=== PATIENT | male | born 1965 | race Caucasian/White ===

== ENCOUNTER → 2018-01-20 | Outpatient (REF) | payer OTHER, MEDICAID ==
[2018-01-20 13:35] LABS: TOTAL 25(OH) VITAMIN D 29.1 NG/ML (30.0-100.0)
[2018-01-20 13:39] LABS: ALBUMIN 3.3 GM/DL (3.2-5.2); ALKALINE PHOSPHATASE 150 U/L (45-117); ALT/SGPT 48 U/L (12-78); ANION GAP 8 MEQ/L (8-16); AST/SGOT 24 U/L (7-37); BILIRUBIN,TOTAL 0.4 MG/DL (0.2-1.0); BLOOD UREA NITROGEN 12 MG/DL (7-18); CALCIUM LEVEL 8.5 MG/DL (8.5-10.1); CARBON DIOXIDE LEVEL 25 MEQ/L (21-32); CHLORIDE LEVEL 107 MEQ/L (98-107); CHOLESTEROL LEVEL 128 MG/DL (<200); GLOMERULAR FILTRATION RATE > 60.0 (>56); GLUCOSE, FASTING 97 MG/DL (70-100); HDL CHOLESTEROL 40 MG/DL (>40); NON-HDL-C 88 MG/DL; PROSTATIC SPECIFIC AG MONITOR 0.29 NG/ML (< 4.0); SODIUM LEVEL 140 MEQ/L (136-145); TOTAL PROTEIN 7.4 GM/DL (6.4-8.2); TRIGLYCERIDES LEVEL 80 MG/DL (<150)
[2018-01-20 14:34] LABS: ESTIMATED AVERAGE GLUCOSE 123 MG/DL (60-110); HEMOGLOBIN A1c 5.9 %
[2018-01-22 00:08] LABS: TESTOSTERONE FREE (DIRECT) 6.4 pg/mL (7.2-24.0)
== END ==
LOC: M LAB REF 12:15
DX: R06.83 Snoring (principal); Z13.9 Encounter for screening, unspecified; N52.9 Male erectile dysfunction, unspecified

== ENCOUNTER → 2018-02-25 | Outpatient (CLI) | payer OTHER, MEDICAID | LOC: M SLEEP HO 15:02 | DX: G47.30 Sleep apnea, unspecified (principal) | CPT/HCPCS: G0399 ==

== ENCOUNTER → 2018-03-09 | Outpatient (CLI) | payer OTHER ==
[2018-03-09 14:05] LABS: HEMOGLOBIN 16.7 g/dl (13.5-17.5); MEAN CORPUSCULAR HEMOGLOBIN 31.8 pg (27.0-33.0); MEAN CORPUSCULAR HGB CONC 34.8 g/dl (32.0-36.5); MEAN CORPUSCULAR VOLUME 91.4 fl (80.0-96.0); PLATELET COUNT, AUTOMATED 229 10^3/uL (150-450); RED BLOOD COUNT 5.25 10^6/uL (4.30-6.10); RED CELL DISTRIBUTION WIDTH 12.3 % (11.5-14.5); WHITE BLOOD COUNT 8.1 10^3/uL (4.0-10.0)
[2018-03-09 14:23] LABS: ESTRADIOL 25.1 PG/ML (<39.8); LUTEINIZING HORMONE 5.2 mIU/mL (1.5-9.3); PROLACTIN 8.1 NG/ML (2.1-17.7)
[2018-03-09 14:24] LABS: FOLLICLE STIMULATING HORMONE 4.2 mIU/mL (1.4-18.1)
[2018-03-09 14:29] LABS: ALBUMIN 3.5 GM/DL (3.2-5.2); ALKALINE PHOSPHATASE 163 U/L (45-117); ALT/SGPT 54 U/L (12-78); ANION GAP 7 MEQ/L (8-16); AST/SGOT 28 U/L (7-37); BILIRUBIN,TOTAL 0.4 MG/DL (0.2-1.0); BLOOD UREA NITROGEN 11 MG/DL (7-18); CALCIUM LEVEL 8.9 MG/DL (8.5-10.1); CARBON DIOXIDE LEVEL 27 MEQ/L (21-32); CHLORIDE LEVEL 107 MEQ/L (98-107); CREATININE FOR GFR 0.99 MG/DL (0.70-1.30); GLOMERULAR FILTRATION RATE > 60.0 (>56); GLUCOSE, FASTING 117 MG/DL (70-100); POTASSIUM SERUM 4.3 MEQ/L (3.5-5.1); PSA SCREENING 0.24 NG/ML (< 4.0); SODIUM LEVEL 141 MEQ/L (136-145); TOTAL PROTEIN 7.4 GM/DL (6.4-8.2)
[2018-03-11 00:10] LABS: SEX HORMONE BINDING GLOBULIN 28.1 nmol/L (19.3-76.4); TESTOSTERONE FREE (DIRECT) 5.1 pg/mL (7.2-24.0)
== END ==
LOC: M SMT 08:37
DX: E34.9 Endocrine disorder, unspecified (principal); Z12.5 Encounter for screening for malignant neoplasm of prostate
CPT/HCPCS: 83001

== ENCOUNTER → 2018-06-09 | Outpatient (CLI) | payer OTHER | LOC: M SLEEP 19:50 | DX: G47.33 Obstructive sleep apnea (adult) (pediatric) (principal) | CPT/HCPCS: 95811 ==

== ENCOUNTER → 2018-06-11 | Outpatient (CLI) | payer OTHER ==
[2018-06-11 14:53] LABS: HEMATOCRIT 54.6 % (42.0-52.0); HEMOGLOBIN 18.9 g/dl (13.5-17.5); MEAN CORPUSCULAR HEMOGLOBIN 32.4 pg (27.0-33.0); MEAN CORPUSCULAR HGB CONC 34.6 g/dl (32.0-36.5); MEAN CORPUSCULAR VOLUME 93.7 fl (80.0-96.0); PLATELET COUNT, AUTOMATED 213 10^3/uL (150-450); RED BLOOD COUNT 5.83 10^6/uL (4.30-6.10); RED CELL DISTRIBUTION WIDTH 12.9 % (11.5-14.5); WHITE BLOOD COUNT 10.5 10^3/uL (4.0-10.0)
[2018-06-15 00:12] LABS: TESTOSTERONE FREE (DIRECT) 25.1 pg/mL (7.2-24.0)
== END ==
LOC: M LAB 14:23
DX: E34.9 Endocrine disorder, unspecified (principal)
CPT/HCPCS: 84403

== ENCOUNTER 2018-07-02 10:13 | Emergency (ER) | payer OTHER ==
[2018-07-02 12:25] LABS: HEMATOCRIT 57.4 % (42.0-52.0); HEMOGLOBIN 19.7 g/dl (13.5-17.5); MEAN CORPUSCULAR HEMOGLOBIN 31.9 pg (27.0-33.0); MEAN CORPUSCULAR HGB CONC 34.3 g/dl (32.0-36.5); PLATELET COUNT, AUTOMATED 190 10^3/uL (150-450); RED BLOOD COUNT 6.17 10^6/uL (4.30-6.10); RED CELL DISTRIBUTION WIDTH 12.6 % (11.5-14.5); WHITE BLOOD COUNT 8.7 10^3/uL (4.0-10.0)
[2018-07-02] MEDS ORDERED: ISOVUE-370 76% 100ML VIAL (Q9967) As Ordered (12:37)
[2018-07-02 12:50] LABS: ERYTHROCYTE SEDIMENTATION RATE 1 mm/hr (0-20)
[2018-07-02 12:54] LABS: C REACTIVE PROTEIN QUANTITATIV 1.03 MG/DL (0.00-0.30)
[2018-07-02 12:58] LABS: LACTIC ACID SEPSIS PROTOCOL 1.8 MMOL/L (0.4-2.0)
== END 2018-07-02 14:10 | disposition home or self-care (01) ==
LOC: M ED 10:13
DX: K11.20 Sialoadenitis, unspecified (principal); K21.9 Gastro-esophageal reflux disease without esophagitis; G56.00 Carpal tunnel syndrome, unspecified upper limb; Z87.442 Personal history of urinary calculi; Z86.69 Personal history of other diseases of the nervous system and sense organs; Z88.1 Allergy status to other antibiotic agents; Z88.2 Allergy status to sulfonamides; Z87.891 Personal history of nicotine dependence
CPT/HCPCS: Q9967

== ENCOUNTER → 2018-07-23 | Outpatient (CLI) | payer OTHER ==
[2018-07-23 12:08] LABS: ESTIMATED AVERAGE GLUCOSE 120 MG/DL (60-110); HEMOGLOBIN A1c 5.8 %
[2018-07-23 12:16] LABS: ALBUMIN 3.2 GM/DL (3.2-5.2); ALBUMIN/GLOBULIN RATIO 0.82 (1.00-1.93); ALKALINE PHOSPHATASE 111 U/L (45-117); ALT/SGPT 46 U/L (12-78); ANION GAP 7 MEQ/L (8-16); AST/SGOT 27 U/L (7-37); BILIRUBIN,TOTAL 0.5 MG/DL (0.2-1.0); BLOOD UREA NITROGEN 9 MG/DL (7-18); CALCIUM LEVEL 8.5 MG/DL (8.5-10.1); CARBON DIOXIDE LEVEL 29 MEQ/L (21-32); CHLORIDE LEVEL 104 MEQ/L (98-107); CHOLESTEROL LEVEL 111 MG/DL (<200); CHOLESTEROL RISK RATIO 2.707 (<5); CREATININE FOR GFR 1.04 MG/DL (0.70-1.30); GLOMERULAR FILTRATION RATE > 60.0 (>56); GLUCOSE, FASTING 84 MG/DL (70-100); HDL CHOLESTEROL 41 MG/DL (>40); LDL CHOLESTEROL 58 MG/DL (<100); NON-HDL-C 70 MG/DL; POTASSIUM SERUM 4.3 MEQ/L (3.5-5.1); SODIUM LEVEL 140 MEQ/L (136-145); TOTAL PROTEIN 7.1 GM/DL (6.4-8.2); TRIGLYCERIDES LEVEL 62 MG/DL (<150)
== END ==
LOC: M LAB 11:30
DX: R74.8 Abnormal levels of other serum enzymes (principal); E78.70 Disorder of bile acid and cholesterol metabolism, unspecified; R73.03 Prediabetes
CPT/HCPCS: 80053

== ENCOUNTER → 2018-08-12 | Outpatient (REF) | payer OTHER ==
[2018-08-12 17:37] LABS: BF MONONUCLEAR CELL % 83.7 % (0-0); BF POLYMORPHONUCLEAR CELL % 16.3 % (0-0); RBC BODY FLUID 134 10^3/uL (<2); WBC BODY FLUID 1006 /uL (0-10)
[2018-08-12 17:45] LABS: SOURCE, BODY FLUID RT KNEE; SYNOVIAL FLUID COLOR RED (YELLOW)
[2018-08-12 17:46] LABS: APPEARANCE, BODY FLUID TURBID (CLEAR); BF DIFF IF INDICATED? YES (NO)
== END ==
LOC: M LAB REF 16:44
DX: M25.461 Effusion, right knee (principal)
CPT/HCPCS: 89051

== ENCOUNTER → 2018-09-12 | Outpatient (CLI) | payer OTHER ==
[2018-09-12 08:23] LABS: HEMATOCRIT 53.6 % (42.0-52.0); HEMOGLOBIN 18.4 g/dl (13.5-17.5); MEAN CORPUSCULAR HGB CONC 34.3 g/dl (32.0-36.5); MEAN CORPUSCULAR VOLUME 93.2 fl (80.0-96.0); PLATELET COUNT, AUTOMATED 206 10^3/uL (150-450); RED BLOOD COUNT 5.75 10^6/uL (4.30-6.10); RED CELL DISTRIBUTION WIDTH 13.3 % (11.5-14.5); WHITE BLOOD COUNT 11.6 10^3/uL (4.0-10.0)
[2018-09-13 14:12] LABS: TESTOSTERONE FREE (DIRECT) 26.7 pg/mL (7.2-24.0)
== END ==
LOC: M LAB 07:55
DX: E34.9 Endocrine disorder, unspecified (principal)
CPT/HCPCS: 84403

== ENCOUNTER 2018-10-05 07:48 | Day surgery (SDC) | payer OTHER ==
[~2018-10-05] VITALS: Ht 182.9 cm; Wt 118.8 kg
[~2018-10-05 07:48] MED LIST: /AUGM875TA PO; /CELE20CA PO; /ONDA4TA PO; ACET65TA PO; ASPI1TAB PO; ATOR40TA75 PO; AUGM875T28 PO; CIPR500T4 PO; DOXY100C37 PO; FLAG500T PO; KETO2SH; PERC5TAB8 OR; PERC5TAB8 PO; TEST200I14 IM; VICO5TAB PO
[2018-10-05] MEDS ORDERED: PROPOFOL 200 MG/20 ML VIAL As Ordered ONE ×2 (07:53→08:47)
[2018-10-05] MEDS ORDERED: LIDOCAINE 2% INJ 100 MG/5 ML SDV (FOR ANES.) As Ordered ONE (07:53)
[2018-10-05] MEDS ORDERED: NS 1,000 ML IV ONE (08:15)
--- NOTE | 2018-10-05 09:02 | ROOR ---
Patient Name: Landon Moya Procedure Date: 10/05/2018 8:38 AM Date of : 1965 Age: 53 Room: [facility] Gender: Male Note Status: Finalized Procedure: Total Colonoscopy to Cecum + Cold Snare Polypectomy + Hemoclips Indications: Screening for colorectal malignant neoplasm Providers: Kendrick Ayoub MD Referring MD: Suzette COBOS NP Requesting Provider: Medicines: Monitored Anesthesia Care Complications: No immediate complications. Procedure: Pre-Anesthesia Assessment: - The heart rate, respiratory rate, oxygen saturations, blood pressure, adequacy of pulmonary ventilation, and response to care were monitored throughout the procedure. The Colonoscope was introduced through the anus and advanced to the cecum, identified by appendiceal orifice and ileocecal valve. The colonoscopy was performed without difficulty. The patient tolerated the procedure well. The quality of the bowel preparation was excellent. Findings: The perianal and digital rectal examinations were normal. Non-bleeding internal hemorrhoids were found during retroflexion. The hemorrhoids were small and Grade I (internal hemorrhoids that do not prolapse). Multiple small and large-mouthed diverticula were found in the recto-sigmoid colon, sigmoid colon and descending colon. A medium polyp was found at 20 cm proximal to the anus. The polyp was sessile. The polyp was removed with a cold snare. Resection and retrieval were complete. To prevent bleeding after the polypectomy, two hemostatic clips were successfully placed (MR conditional). There was no bleeding at the end of the procedure. The exam was otherwise without abnormality on direct and retroflexion views. Impression: - Non-bleeding internal hemorrhoids. - Diverticulosis in the recto-sigmoid colon, in the sigmoid colon and in the descending colon. - One medium polyp at 20 cm proximal to the anus, removed with a cold snare. Resected and retrieved. Clips (MR conditional) were placed. - The examination was otherwise normal on direct and retroflexion views. - The exam was otherwise normal to the cecum. Recommendation: - Patient has a contact number available for emergencies. The signs and symptoms of potential delayed complications were discussed with the patient. Return to normal activities tomorrow. Written discharge instructions were provided to the patient. - High fiber diet. - Discharge patient to home. - Continue present medications. - Await pathology results. - Telephone GI clinic for pathology results in 1 week. - Return to referring physician. - Repeat colonoscopy in 10 years for surveillance based on pathology results. - Return to referring physician. - The findings and recommendations were discussed with the patient's family. Kendrick Ayoub MD Kendrick Ayoub MD 10/05/2018 9:02:07 AM This report has been signed electronically. Number of Addenda: 0 Note Initiated On: 10/05/2018 8:38 AM Estimated Blood Loss: Estimated blood loss: none.
[2018-10-05 09:35] VITALS: BP 152/76
== END 2018-10-05 09:45 | disposition home or self-care (01) ==
LOC: M OPP 07:48
PROVIDERS: ATTEND Internal Medicine Gastroenterology
DX: D12.6 Benign neoplasm of colon, unspecified (principal); K57.30 Diverticulosis of large intestine without perforation or abscess without bleeding; K64.0 First degree hemorrhoids; Z12.11 Encounter for screening for malignant neoplasm of colon

== ENCOUNTER → 2018-10-28 | Outpatient (CLI) | payer OTHER ==
--- NOTE | 2018-10-29 06:45 | REP ---
MRI right knee without contrast: History: Pain in the right knee. Technique: Axial, coronal and sagittal imaging planes are utilized. T1 and T2-weighted scans are included with and without fat saturation. MRI findings: There is a large joint effusion. There is no observable Rosales's cyst. There is some extra-articular subcutaneous edema diffusely anteriorly and anterolaterally about the knee. Cortical and medullary bone signal intensity are normal. There is an area of subtle marrow edema in the upper central patella. There is three compartment osteoarthritic spurring most pronounced in the patellofemoral and lateral compartments. There is advanced chondromalacia in all three compartments. No medial or lateral meniscal tear is appreciated. There is no evidence of medial or lateral collateral ligament disruption. The anterior and the posterior cruciate ligaments have an intact appearance. Patellar and quadriceps tendons are unremarkable. There is nonarticular spurring at the superior pole of the patella in addition to osteoarthritic articular spurring. A small medial suprapatellar plica is noted. There is a wafer shaped osteocartilaginous loose body suspected in the posterolateral joint fluid. This measures 8 mm by 9 mm by 2 mm. No other loose body is appreciated. Impression: Three compartment osteoarthritis. Fairly large joint effusion. Osteocartilaginous loose body posterolaterally. Suprapatellar plica. Extra-articular edema. Advanced three compartment chondromalacia. Electronically Signed by Sameer Herrera MD 10/29/2018 08:26 A
== END ==
LOC: M RAD 16:19
PROVIDERS: ATTEND Orthopaedic Surgery Sports Medicine
DX: M25.561 Pain in right knee (principal)

== ENCOUNTER → 2018-10-31 | Outpatient (CLI) | payer OTHER ==
[2018-11-02 00:10] LABS: Lyme Disease IgG/IgM Antibodie <0.91 ISR (0.00-0.90); Lyme Disease IgM Ab Quantitati <0.80 index (0.00-0.79)
== END ==
LOC: M LAB 08:51
PROVIDERS: ATTEND Orthopaedic Surgery Sports Medicine
DX: M25.561 Pain in right knee (principal)

== ENCOUNTER → 2018-10-31 | Outpatient (CLI) | payer OTHER ==
[2018-10-31 09:25] LABS: HEMATOCRIT 48.9 % (42.0-52.0); HEMOGLOBIN 17.3 g/dl (13.5-17.5); MEAN CORPUSCULAR HEMOGLOBIN 32.5 pg (27.0-33.0); MEAN CORPUSCULAR HGB CONC 35.4 g/dl (32.0-36.5); MEAN CORPUSCULAR VOLUME 91.7 fl (80.0-96.0); PLATELET COUNT, AUTOMATED 198 10^3/uL (150-450); RED BLOOD COUNT 5.33 10^6/uL (4.30-6.10)
[2018-11-01 10:14] LABS: TESTOSTERONE FREE (DIRECT) 18.2 pg/mL (7.2-24.0)
== END ==
LOC: M LAB 08:47
PROVIDERS: ATTEND Nurse Practitioner Women's Health
DX: E34.9 Endocrine disorder, unspecified (principal)

== ENCOUNTER → 2019-03-10 | Outpatient (CLI) | payer OTHER ==
[~2019-03-10] MED LIST changes: -/CELE20CA PO; -/ONDA4TA PO; -ASPI1TAB PO; +ASPI81TA26 PO; +CELE1CAP4 PO; -KETO2SH; +KETO2SHA9; +ONDA-1 PO
[2019-03-10 10:32] LABS: BASO # 0.1 10^3/uL (0.0-0.2); BASO % 0.6 % (0.0-1.0); EOS # 0.3 10^3/uL (0.0-0.50); EOS % 3.5 % (0.0-3.0); HEMATOCRIT 51.5 % (42.0-52.0); HEMOGLOBIN 18.2 g/dl (13.5-17.5); LYMPH # 3.3 10^3/uL (1.5-4.5); LYMPH % 37.3 % (24.0-44.0); MEAN CORPUSCULAR HEMOGLOBIN 33.7 pg (27.0-33.0); MEAN CORPUSCULAR HGB CONC 35.3 g/dl (32.0-36.5); MEAN CORPUSCULAR VOLUME 95.4 fl (80.0-96.0); MONO # 0.6 10^3/uL (0.0-0.8); MONO % 6.6 % (0.0-5.0); NEUTROPHILS # 4.6 10^3/uL (1.8-7.7); NEUTROPHILS % 51.3 % (36.0-66.0); PLATELET COUNT, AUTOMATED 213 10^3/uL (150-450); WHITE BLOOD COUNT 8.9 10^3/uL (4.0-10.0)
[2019-03-10 11:13] LABS: ALBUMIN 3.3 GM/DL (3.2-5.2); ALT/SGPT 57 U/L (12-78); BILIRUBIN,TOTAL 0.5 MG/DL (0.2-1.0); BLOOD UREA NITROGEN 13 MG/DL (7-18); CALCIUM LEVEL 8.6 MG/DL (8.5-10.1); CARBON DIOXIDE LEVEL 28 MEQ/L (21-32); CHLORIDE LEVEL 105 MEQ/L (98-107); CHOLESTEROL LEVEL 135 MG/DL (<200); CHOLESTEROL RISK RATIO 3.139 (<5); CREATININE FOR GFR 0.89 MG/DL (0.70-1.30); FREE T4 0.77 NG/DL (0.76-1.46); GLOMERULAR FILTRATION RATE > 60.0 (>56); GLUCOSE, FASTING 102 MG/DL (70-100); HDL CHOLESTEROL 43 MG/DL (>40); LDL CHOLESTEROL 75 MG/DL (<100); NON-HDL-C 92 MG/DL; POTASSIUM SERUM 3.9 MEQ/L (3.5-5.1); SODIUM LEVEL 140 MEQ/L (136-145); TOTAL 25(OH) VITAMIN D 27.1 NG/ML (30.0-100.0); TOTAL PROTEIN 7.5 GM/DL (6.4-8.2); TRIGLYCERIDES LEVEL 87 MG/DL (<150)
[2019-03-10 11:17] LABS: HEMOGLOBIN A1c 5.5 %
== END ==
LOC: M LAB 09:31
PROVIDERS: ATTEND Physician Assistant
DX: J30.9 Allergic rhinitis, unspecified (principal); E78.2 Mixed hyperlipidemia; E55.9 Vitamin D deficiency, unspecified; Z68.35 Body mass index [BMI] 35.0-35.9, adult; Z87.898 Personal history of other specified conditions

== ENCOUNTER → 2019-03-14 | Outpatient (CLI) | payer OTHER ==
[2019-03-14 18:23] LABS: ALBUMIN 3.5 GM/DL (3.2-5.2); ALT/SGPT 51 U/L (12-78); BILIRUBIN,TOTAL 0.4 MG/DL (0.2-1.0); BLOOD UREA NITROGEN 12 MG/DL (7-18); CALCIUM LEVEL 9.1 MG/DL (8.5-10.1); CARBON DIOXIDE LEVEL 27 MEQ/L (21-32); CHLORIDE LEVEL 104 MEQ/L (98-107); CREATININE FOR GFR 0.91 MG/DL (0.70-1.30); GLOMERULAR FILTRATION RATE > 60.0 (>56); GLUCOSE, FASTING 96 MG/DL (70-100); POTASSIUM SERUM 3.7 MEQ/L (3.5-5.1); SODIUM LEVEL 140 MEQ/L (136-145); TOTAL PROTEIN 7.1 GM/DL (6.4-8.2)
[2019-03-17 00:07] LABS: TESTOSTERONE FREE (DIRECT) 13.5 pg/mL (7.2-24.0)
== END ==
LOC: M LAB 16:23
PROVIDERS: ATTEND Nurse Practitioner Women's Health
DX: Z12.5 Encounter for screening for malignant neoplasm of prostate (principal); E34.9 Endocrine disorder, unspecified

== ENCOUNTER → 2019-07-19 | Outpatient (CLI) | payer OTHER ==
[2019-07-19 10:25] LABS: HEMATOCRIT 49.6 % (42.0-52.0); HEMOGLOBIN 17.4 g/dl (13.5-17.5); MEAN CORPUSCULAR HEMOGLOBIN 32.8 pg (27.0-33.0); MEAN CORPUSCULAR HGB CONC 35.1 g/dl (32.0-36.5); MEAN CORPUSCULAR VOLUME 93.4 fl (80.0-96.0); RED BLOOD COUNT 5.31 10^6/uL (4.30-6.10); WHITE BLOOD COUNT 8.6 10^3/uL (4.0-10.0)
[2019-07-21 00:07] LABS: TESTOSTERONE FREE (DIRECT) 11.1 pg/mL (7.2-24.0)
== END ==
LOC: M LAB 09:08
PROVIDERS: ATTEND Nurse Practitioner Women's Health
DX: E34.9 Endocrine disorder, unspecified (principal)

== ENCOUNTER → 2019-09-26 | Outpatient (CLI) | payer OTHER ==
--- NOTE | 2019-09-26 08:40 | REP ---
CT paranasal sinuses: 09/26/2019. Indication: Sinusitis. Comparison: 07/02/2018. Technique: Unenhanced axial CT images of the paranasal sinuses were performed with coronal reconstructions provided. Findings: There are no air-fluid levels or frothy secretions within the paranasal sinuses. Minimal periosteal mucosal thickening is noted within the ethmoid sinuses bilaterally. The sinonasal passageways are patent. Left-sided mastoid effusion is present without coalescence or cortical breakthrough intracranially. There is abnormal soft tissue within the left middle ear cavity without ossicular/osseous erosion. The right mastoid air cells are clear. There is leftward deviation of the nasal septum. Impression: Minimal chronic-appearing ethmoid sinus disease. Left mastoid effusion which is likely inflammatory/infectious. Please correlate with direct inspection. Electronically Signed by Luis Miguel Cardona DO 09/26/2019 08:32 A
== END ==
LOC: M RAD 07:19
PROVIDERS: ATTEND Specialist
DX: J32.4 Chronic pansinusitis (principal); J33.8 Other polyp of sinus

== ENCOUNTER → 2019-11-16 | Outpatient (CLI) | payer OTHER ==
[~2019-11-16] MED LIST changes: +CETI-36 PO; +OMEP40CA97 PO; +VITA100054 PO
--- NOTE | 2019-11-17 00:59 | ECGEPIP ---
[facility] Test Date: 2019-11-16 Pat Name: MICHELLE ENGLISH Department: Room: - Gender: Male [employer]it [employer]erks Supervisor: MAGDALENA : 1965 Requested By: ELENA Broussard Order Number: [id number] Reading MD: Rogelio Hernandes Measurements Intervals [place] Rate: 64 P: 15 SD: 169 QRS: 18 QRSD: 93 T: 32 QT: 401 QTc: 414 Interpretive Statements SINUS RHYTHM MILD IVCD NO PRIOR TRACING IN THE SYSTEM Electronically Signed on 11-17-2019 0:59:08 EST by Rogelio Hernandes
== END ==
LOC: M EKG 16:46
PROVIDERS: ATTEND Anesthesiology
DX: Z01.810 Encounter for preprocedural cardiovascular examination (principal)

== ENCOUNTER 2019-11-20 08:59 | Day surgery (SDC) | payer OTHER ==
[~2019-11-20] VITALS: Ht 185.4 cm; Wt 127.9 kg
[~2019-11-20 08:59] MED LIST changes: +EPINEPHrine 1MG/ML INJ 30ML MD-VIAL As Ordered ONE; +LIDOCAINE 1% MDV 20ML VIAL SQ PRN; +LIDOCAINE W/EPINEPHRINE 1% 20ML VIAL As Ordered ONE; +LR 1,000 ML IV ONE; +METHYLENE BLUE 0.5% (5MG/ML) 10 ML AMP (PROVAYBLUE)(Q9968 PER 1MG) As Ordered ONE; +OXYMETAZOLINE NASAL SPRAY (AFRIN) As Ordered ONE
[2019-11-20] MEDS ORDERED: CIPRODEX OTIC SUSP 7.5ML As Ordered ONE (10:59)
[2019-11-20] MEDS ORDERED: LIDOCAINE 2% INJ 100 MG/5 ML SDV (FOR ANES.) As Ordered ONE ×2 (11:12→12:12)
[2019-11-20] MEDS ORDERED: fentaNYL 100 MCG/2 ML INJECTION (J3010) As Ordered ONE ×2 (11:12→11:13)
[2019-11-20] MEDS ORDERED: MIDAZOLAM INJ 2 MG/2 ML VIAL (J2250) As Ordered ONE (11:12)
[2019-11-20] MEDS ORDERED: propofoL 200 MG/20 ML VIAL As Ordered ONE (11:12)
[2019-11-20] MEDS ORDERED: ROCURONIUM BROMIDE 50 MG/5 ML VIAL As Ordered ONE (11:12)
[2019-11-20] MEDS ORDERED: dexameTHASONE 4 MG/ML 1ML VIAL (J1100) As Ordered ONE (11:12)
[2019-11-20] MEDS ORDERED: SUGAMMADEX SODIUM 500 MG/5 ML VIAL (BRIDION) As Ordered ONE (11:12)
[2019-11-20] MEDS ORDERED: ONDANSETRON 4MG/2ML VIAL (J2405) As Ordered ONE (11:12)
[2019-11-20] MEDS ORDERED: METOCLOPRAMIDE INJ 10MG/2ML VIAL (J2765) As Ordered ONE (11:12)
[2019-11-20] MEDS ORDERED: PHENYLephrine HCL 500 MCG/5 ML (100MCG/ML) SYRINGE (J2370) As Ordered ONE (11:33)
[2019-11-20] MEDS ORDERED: ACETAMINOPHEN 1000MG 100ML IV BTL (OFIRMEV) (J0131 PER 10MG) As Ordered ONE (11:34)
[2019-11-20] MEDS ORDERED: PERCOCET 5MG/325MG TAB As Ordered ONE (12:59)
[2019-11-20] MEDS: PERCOCET 5MG/325MG TAB PO PRN ×2 (13:00→14:14)
[2019-11-20] MEDS ORDERED: IBUPROFEN 800 MG TAB PO PRN (13:15)
[2019-11-20] MEDS ORDERED: fentaNYL 100 MCG/2 ML INJECTION (J3010) IV PRN (13:15)
[2019-11-20] MEDS ORDERED: LR 1,000 ML IV SCH (13:15)
[2019-11-20] MEDS ORDERED: ONDANSETRON 4MG/2ML VIAL (J2405) IV PRN (13:15)
[2019-11-20] MEDS ORDERED: PERCOCET 5MG/325MG TAB PO PRN (13:15)
[2019-11-20] MEDS ORDERED: METOCLOPRAMIDE INJ 10MG/2ML VIAL (J2765) IV PRN (13:15)
[2019-11-20 14:50] VITALS: BP 158/81
--- NOTE | 2019-11-24 12:23 | RO ---
DATE OF PROCEDURE: 11/24/2019 PREPROCEDURE DIAGNOSES: 1. Left chronic secretory otitis media. 2. Nasopharyngeal mass. 3. Deviated septum. POSTPROCEDURE DIAGNOSES: 1. Left chronic secretory otitis media. 2. Nasopharyngeal mass. 3. Deviated septum. PROCEDURES: 1. Left myringotomy with tube. 2. Septoplasty. 3. Endoscopic evacuation of nasopharyngeal cyst. SURGEON: Dr. Trey Bejarano. BETTING CLERK: ANESTHESIA: General endotracheal. INDICATION: This is a 54-year-old who presents with decreased hearing in his left ear for a year's duration, left-sided nasal obstruction on office examination revealing a severe deformity of the nasal septum associated with a benign appearing nasopharyngeal cyst that was in the vicinity of the eustachian tube torus. DESCRIPTION OF PROCEDURE: Satisfactory general endotracheal anesthesia administered. First the left ear was examined and cleaned under the microscope. An anterior inferior myringotomy was made. Thick mucoid fluid was suctioned from the middle ear. The middle ear was then irrigated with Ciprodex drops. A Beveled Bobbin tube was inserted and Ciprodex drops were instilled. Next, he was placed in position for nasal surgery. The nose was first prepared for surgery using cotton-soaked pledgets with Afrin solution to the nasal cavity. 1% Xylocaine with 1:100,000 epinephrine was injected into the nasal septum. On preparation of the nose, it was observed that the septal deformity was the most severe in the region of the vomer perpendicular plate where there was literally a 90-degree bend in the septum with marked concavity into the left nasal cavity at this point. A Jennings incision was made on the left side of the nose. A mucoperichondrial flap and envelope was created on the left side of the nasal septum and carried down to the junction of the bony and cartilaginous septum. This was then with an elevator, and an envelope was then created on the right side of the septum. A Vicente scissors was used to make a cut high in the perpendicular plate in the midportion of the vomer, and a central segment of the bony septum was resected. Next, with the round knife on the Lowndes elevator, a strip of cartilage was resected from the floor of the nose, mobilizing the quadrilateral cartilage and creating a swinging door. Then, a central segment of cartilaginous septum was resected, preserving a 1 cm dorsal and caudal strut. Double-action rongeur was used to take down deflected portions of the perpendicular plate, as well. The dissection in the region of the bony spur on the vomer was tedious because it was quite attenuated here on both sides of this very sharp 90-degree spur. Finally, the maxillary crest spur was taken down after elevating mucoperiosteum off both sides of it with a chisel. A segment of the resected cartilage was morselized and placed back into the septal envelope. The incision was closed using an interrupted #5-0 chromic suture. Then, a #4-0 plain suture was placed in a [id number] fashion through the two leaves of mucoperichondrium to appose them. Once the septoplasty was completed, endoscopic examination of the nasopharynx was performed. There appeared to be a large mucoid cyst emerging from the posterior wall of the nasopharynx superiorly adjacent to the eustachian torus. Using a cup-type forceps, the mucous cyst was uncapped marsupializing into the nasopharynx. Suction cautery was then used to coagulate the edges of the capsule of the cyst which was identified. The specimen was sent for biopsy. General pledgets were placed into the side of the nose for 3 minutes and there was no significant bleeding. Mcleod splints were placed into of columella with #3-0 Prolene suture. The pharyngeal pack, which had been placed in the beginning of the procedure was removed. Throat was suctioned. The patient was awakened and extubated, sent to the recovery room in satisfactory condition. He will be discharged home on Percocet for pain, doxycycline 100 twice a day. He will be seen in the office in 3 days for split removal.
== END 2019-11-20 14:58 | disposition home or self-care (01) ==
LOC: M SDC 08:59
PROVIDERS: ATTEND Specialist
DX: J34.2 Deviated nasal septum (principal); J34.1 Cyst and mucocele of nose and nasal sinus; H65.92 Unspecified nonsuppurative otitis media, left ear; K21.9 Gastro-esophageal reflux disease without esophagitis; E66.9 Obesity, unspecified; G47.30 Sleep apnea, unspecified; Z79.899 Other long term (current) drug therapy; Z79.82 Long term (current) use of aspirin; Z88.2 Allergy status to sulfonamides; Z87.891 Personal history of nicotine dependence
CPT/HCPCS: 30520; 31237; 69436; 88300; 88305; J0131; J1100; J2250; J2370; J2405; J2765; J3010; Q9968

== ENCOUNTER 2019-11-20 18:44 | Emergency (ER) | payer OTHER ==
[~2019-11-20] VITALS: Ht 185.4 cm; Wt 128.2 kg
[~2019-11-20 18:44] MED LIST changes: -EPINEPHrine 1MG/ML INJ 30ML MD-VIAL As Ordered ONE; -LIDOCAINE 1% MDV 20ML VIAL SQ PRN; -LIDOCAINE W/EPINEPHRINE 1% 20ML VIAL As Ordered ONE; -LR 1,000 ML IV ONE; -METHYLENE BLUE 0.5% (5MG/ML) 10 ML AMP (PROVAYBLUE)(Q9968 PER 1MG) As Ordered ONE; -OXYMETAZOLINE NASAL SPRAY (AFRIN) As Ordered ONE
[2019-11-20] MEDS ORDERED: NS 1,000 ML IV SCH (19:11)
[2019-11-20] MEDS ORDERED: PHENYLEPHRINE 0.5% NASAL SPRAY 15 ML ONE (19:30)
[2019-11-20 19:56] LABS: BASO % 0.2 % (0.0-1.0); HEMATOCRIT 50.6 % (42.0-52.0); HEMOGLOBIN 17.1 g/dl (13.5-17.5); LYMPH # 1.6 10^3/uL (1.5-5.0); LYMPH % 12.1 % (24.0-44.0); MEAN CORPUSCULAR HEMOGLOBIN 31.3 pg (27.0-33.0); MEAN CORPUSCULAR HGB CONC 33.8 g/dl (32.0-36.5); MEAN CORPUSCULAR VOLUME 92.5 fl (80.0-96.0); MONO # 0.1 10^3/uL (0.0-0.8); NEUTROPHILS # 11.4 10^3/uL (1.5-8.5); PLATELET COUNT, AUTOMATED 194 10^3/uL (150-450); RED BLOOD COUNT 5.47 10^6/uL (4.30-6.10); WHITE BLOOD COUNT 13.3 10^3/uL (4.0-10.0)
[2019-11-20 20:06] LABS: INR 1.06; PROTHROMBIN TIME 13.5 SECONDS (11.8-14.0)
[2019-11-20 20:26] LABS: BLOOD UREA NITROGEN 12 MG/DL (7-18); CALCIUM LEVEL 8.4 MG/DL (8.5-10.1); CARBON DIOXIDE LEVEL 26 MEQ/L (21-32); CHLORIDE LEVEL 105 MEQ/L (98-107); CREATININE FOR GFR 1.08 MG/DL (0.70-1.30); GLOMERULAR FILTRATION RATE > 60.0 (>56); GLUCOSE, FASTING 168 MG/DL (70-100); SODIUM LEVEL 138 MEQ/L (136-145)
[2019-11-20] MEDS ORDERED: MORPHINE 4 MG/ML 1ML VIAL/SYRINGE (J2270) IV ONE (21:00)
[2019-11-20 21:43] VITALS: BP 150/82
== END 2019-11-20 21:45 | disposition home or self-care (01) ==
LOC: M ED 18:44
DX: J95.831 Postprocedural hemorrhage of a respiratory system organ or structure following other procedure (principal); K21.9 Gastro-esophageal reflux disease without esophagitis; G51.0 Bell's palsy; G47.30 Sleep apnea, unspecified; M54.9 Dorsalgia, unspecified; Z88.2 Allergy status to sulfonamides; Z79.82 Long term (current) use of aspirin
CPT/HCPCS: 80048; 85025; 85610; 85730; 93041; 94760; 96374; 99284; J2270

== ENCOUNTER → 2019-11-30 | Outpatient (REF) | payer OTHER ==
[2019-11-30 22:21] LABS: INFLUENZA A AMPLIFICATION NEGATIVE (NEGATIVE); INFLUENZA B AMPLIFICATION POSITIVE (NEGATIVE)
== END ==
LOC: M LAB REF 08:35
PROVIDERS: ATTEND Physician Assistant
DX: J10.1 Influenza due to other identified influenza virus with other respiratory manifestations (principal)

== ENCOUNTER → 2019-12-16 | Outpatient (CLI) | payer OTHER ==
[2019-12-16 15:00] LABS: HEMATOCRIT 50.4 % (42.0-52.0); HEMOGLOBIN 17.2 g/dl (13.5-17.5); MEAN CORPUSCULAR HEMOGLOBIN 32.1 pg (27.0-33.0); MEAN CORPUSCULAR HGB CONC 34.1 g/dl (32.0-36.5); PLATELET COUNT, AUTOMATED 248 10^3/uL (150-450); RED BLOOD COUNT 5.36 10^6/uL (4.30-6.10); WHITE BLOOD COUNT 9.2 10^3/uL (4.0-10.0)
[2019-12-20 00:07] LABS: TESTOSTERONE FREE (DIRECT) 14.3 pg/mL (7.2-24.0)
== END ==
LOC: M LAB 14:22
PROVIDERS: ATTEND Nurse Practitioner Women's Health
DX: E34.9 Endocrine disorder, unspecified (principal); Z12.5 Encounter for screening for malignant neoplasm of prostate

== ENCOUNTER → 2019-12-16 | Outpatient (CLI) | payer OTHER ==
[2019-12-16 15:00] LABS: BASO % 0.3 % (0.0-1.0); EOS # 0.1 10^3/uL (0.0-0.5); EOS % 1.5 % (0.0-3.0); HEMATOCRIT 49.1 % (42.0-52.0); HEMOGLOBIN 16.8 g/dl (13.5-17.5); LYMPH # 3.4 10^3/uL (1.5-5.0); LYMPH % 35.9 % (24.0-44.0); MEAN CORPUSCULAR HEMOGLOBIN 32.3 pg (27.0-33.0); MEAN CORPUSCULAR HGB CONC 34.2 g/dl (32.0-36.5); MEAN CORPUSCULAR VOLUME 94.4 fl (80.0-96.0); MONO # 0.7 10^3/uL (0.0-0.8); MONO % 7.5 % (0.0-5.0); NEUTROPHILS # 5.2 10^3/uL (1.5-8.5); NEUTROPHILS % 54.2 % (36.0-66.0); PLATELET COUNT, AUTOMATED 251 10^3/uL (150-450); WHITE BLOOD COUNT 9.5 10^3/uL (4.0-10.0)
[2019-12-16 15:30] LABS: ALBUMIN 3.5 GM/DL (3.2-5.2); ALT/SGPT 67 U/L (12-78); BILIRUBIN,TOTAL 0.5 MG/DL (0.2-1.0); BLOOD UREA NITROGEN 12 MG/DL (7-18); CALCIUM LEVEL 8.8 MG/DL (8.5-10.1); CARBON DIOXIDE LEVEL 30 MEQ/L (21-32); CHLORIDE LEVEL 107 MEQ/L (98-107); CHOLESTEROL LEVEL 142 MG/DL (<200); CHOLESTEROL RISK RATIO 3.155 (<5); CREATININE FOR GFR 0.96 MG/DL (0.70-1.30); GLOMERULAR FILTRATION RATE > 60.0 (>56); GLUCOSE, FASTING 85 MG/DL (70-100); HDL CHOLESTEROL 45 MG/DL (>40); LDL CHOLESTEROL 76 MG/DL (<100); NON-HDL-C 97 MG/DL; POTASSIUM SERUM 4.1 MEQ/L (3.5-5.1); SODIUM LEVEL 141 MEQ/L (136-145); TOTAL PROTEIN 7.5 GM/DL (6.4-8.2); TRIGLYCERIDES LEVEL 107 MG/DL (<150)
[2019-12-18 09:42] LABS: TOTAL 25(OH) VITAMIN D 38.9 NG/ML (30.0-100.0)
== END ==
LOC: M LAB 14:25
PROVIDERS: ATTEND Nurse Practitioner Family
DX: E55.9 Vitamin D deficiency, unspecified (principal)

== ENCOUNTER → 2020-10-31 | Outpatient (CLI) | payer SELFPAY ==
[~2020-10-31] MED LIST changes: +KETO2SHA8; -KETO2SHA9
== END ==
LOC: M LABSMTC 13:56
PROVIDERS: ATTEND Pediatrics
DX: Z20.822 Contact with and (suspected) exposure to COVID-19 (principal)

== ENCOUNTER → 2020-12-13 | Outpatient (CLI) | payer BC, OTHER ==
[2020-12-13 16:41] LABS: HEMOGLOBIN 16.8 g/dl (13.5-17.5); MEAN CORPUSCULAR HEMOGLOBIN 31.9 pg (27.0-33.0); MEAN CORPUSCULAR HGB CONC 33.6 g/dl (32.0-36.5); MEAN CORPUSCULAR VOLUME 94.9 fl (80.0-96.0); PLATELET COUNT, AUTOMATED 224 10^3/uL (150-450); RED BLOOD COUNT 5.27 10^6/uL (4.30-6.10); WHITE BLOOD COUNT 8.2 10^3/uL (4.0-10.0)
[2020-12-13 17:07] LABS: ALBUMIN 3.4 GM/DL (3.2-5.2); ALT/SGPT 48 U/L (12-78); BILIRUBIN,TOTAL 0.4 MG/DL (0.2-1.0); BLOOD UREA NITROGEN 12 MG/DL (7-18); CALCIUM LEVEL 9.2 MG/DL (8.5-10.1); CARBON DIOXIDE LEVEL 30 MEQ/L (21-32); CHLORIDE LEVEL 103 MEQ/L (98-107); CREATININE FOR GFR 1.03 MG/DL (0.70-1.30); GLOMERULAR FILTRATION RATE > 60.0 (>56); GLUCOSE, FASTING 101 MG/DL (70-100); POTASSIUM SERUM 3.9 MEQ/L (3.5-5.1); SODIUM LEVEL 138 MEQ/L (136-145); TOTAL PROTEIN 7.2 GM/DL (6.4-8.2)
[2020-12-16 19:06] LABS: TESTOSTERONE FREE (DIRECT) 18.7 pg/mL (7.2-24.0)
== END ==
LOC: M LAB 15:45
PROVIDERS: ATTEND Nurse Practitioner Women's Health
DX: E29.1 Testicular hypofunction (principal)

== ENCOUNTER → 2021-07-24 | Outpatient (CLI) | payer BC, OTHER, MEDICAID ==
[~2021-07-24] MED LIST changes: -DOXY100C37 PO; +DOXY1CAP62 PO; +OMEP40CA4 PO; -OMEP40CA97 PO
[2021-07-24 13:10] LABS: HEMATOCRIT 42.6 % (42.0-52.0); HEMOGLOBIN 15.3 g/dl (13.5-17.5); MEAN CORPUSCULAR HEMOGLOBIN 32.8 pg (27.0-33.0); MEAN CORPUSCULAR HGB CONC 35.9 g/dl (32.0-36.5); MEAN CORPUSCULAR VOLUME 91.4 fl (80.0-96.0); PLATELET COUNT, AUTOMATED 208 10^3/uL (150-450); RED BLOOD COUNT 4.66 10^6/uL (4.30-6.10); WHITE BLOOD COUNT 9.5 10^3/uL (4.0-10.0)
[2021-07-25 18:08] LABS: PSA TOTAL 0.6 ng/mL (0.0-4.0); TESTOSTERONE FREE (DIRECT) 2.4 pg/mL (7.2-24.0)
== END ==
LOC: M LAB 10:55
PROVIDERS: ATTEND Nurse Practitioner Women's Health
DX: Z12.5 Encounter for screening for malignant neoplasm of prostate (principal); E34.9 Endocrine disorder, unspecified

== ENCOUNTER → 2021-10-20 | Outpatient (REF) ==
[~2021-10-20] MED LIST changes: +DOXY-443 PO; -DOXY1CAP62 PO
== END ==
LOC: M LABSMTC 12:48
PROVIDERS: ATTEND Pediatrics
DX: Z20.822 Contact with and (suspected) exposure to COVID-19 (principal)

== ENCOUNTER → 2022-04-27 | Outpatient (CLI) | payer BC, MEDICAID ==
[2022-04-27 11:52] LABS: HEMATOCRIT 47.1 % (42.0-52.0); HEMOGLOBIN 16.1 g/dl (13.5-17.5); MEAN CORPUSCULAR HEMOGLOBIN 31.9 pg (27.0-33.0); MEAN CORPUSCULAR HGB CONC 34.2 g/dl (32.0-36.5); MEAN CORPUSCULAR VOLUME 93.3 fl (80.0-96.0); PLATELET COUNT, AUTOMATED 196 10^3/uL (150-450); RED BLOOD COUNT 5.05 10^6/uL (4.30-6.10); WHITE BLOOD COUNT 7.3 10^3/uL (4.0-10.0)
[2022-04-28 20:08] LABS: TESTOSTERONE FREE (DIRECT) 5.4 pg/mL (7.2-24.0)
== END ==
LOC: M LAB 10:44
PROVIDERS: ATTEND Urology
DX: E29.1 Testicular hypofunction (principal)

== ENCOUNTER → 2022-08-17 | Outpatient (CLI) | payer BC, MEDICAID, OTHER ==
[2022-08-17 12:18] LABS: HEMATOCRIT 52.4 % (42.0-52.0); HEMOGLOBIN 17.8 g/dl (13.5-17.5); MEAN CORPUSCULAR HEMOGLOBIN 32.4 pg (27.0-33.0); MEAN CORPUSCULAR VOLUME 95.4 fl (80.0-96.0); PLATELET COUNT, AUTOMATED 204 10^3/uL (150-450); RED BLOOD COUNT 5.49 10^6/uL (4.30-6.10); WHITE BLOOD COUNT 9.1 10^3/uL (4.0-10.0)
[2022-08-18 19:07] LABS: TESTOSTERONE FREE (DIRECT) 8.3 pg/mL (7.2-24.0)
== END ==
LOC: M LAB 11:43
PROVIDERS: ATTEND Nurse Practitioner Women's Health
DX: E34.9 Endocrine disorder, unspecified (principal)

== ENCOUNTER → 2023-01-13 | Outpatient (CLI) | payer BC, MEDICAID, OTHER ==
[2023-01-13 11:07] LABS: HEMATOCRIT 52.3 % (42.0-52.0); MEAN CORPUSCULAR HEMOGLOBIN 32.3 pg (27.0-33.0); MEAN CORPUSCULAR HGB CONC 34.4 g/dl (32.0-36.5); MEAN CORPUSCULAR VOLUME 93.9 fl (80.0-96.0); PLATELET COUNT, AUTOMATED 203 10^3/uL (150-450); RED BLOOD COUNT 5.57 10^6/uL (4.30-6.10)
[2023-01-13 11:47] LABS: ALBUMIN 3.3 G/DL (3.2-5.2); ALKALINE PHOSPHATASE 140 U/L (46-116); ALT/SGPT 29 U/L (7.0-40); AST/SGOT 22 U/L (<34); BILIRUBIN,TOTAL 0.5 MG/DL (0.3-1.2); BLOOD UREA NITROGEN 11 MG/DL (9-23); CALCIUM LEVEL 8.6 MG/DL (8.5-10.1); CARBON DIOXIDE LEVEL 26 MMOL/L (20-31); CHLORIDE LEVEL 106 MMOL/L (98-107); GLOMERULAR FILTRATION RATE > 60.0 (>56); GLUCOSE, FASTING 121 MG/DL (60-100); POTASSIUM SERUM 3.7 MMOL/L (3.5-5.1); SODIUM LEVEL 139 MMOL/L (136-145); TOTAL PROTEIN 6.5 G/DL (5.7-8.2)
[2023-01-15 23:08] LABS: TESTOSTERONE FREE (DIRECT) 5.7 pg/mL (7.2-24.0)
== END ==
LOC: M LAB 09:41
PROVIDERS: ATTEND Nurse Practitioner Women's Health
DX: E34.9 Endocrine disorder, unspecified (principal)
CPT/HCPCS: 36415; 80053; 84402; 84403; 85027; G0103

== ENCOUNTER → 2023-03-23 | Outpatient (CLI) | payer OTHER ==
[2023-03-23 15:42] LABS: BASO % 0.4 % (0.0-1.0); EOS # 0.2 10^3/uL (0.0-0.5); EOS % 2.4 % (0.0-3.0); HEMATOCRIT 48.4 % (42.0-52.0); LYMPH # 2.5 10^3/uL (1.5-5.0); LYMPH % 31.3 % (24.0-44.0); MEAN CORPUSCULAR HGB CONC 35.1 g/dl (32.0-36.5); MONO # 0.5 10^3/uL (0.0-0.8); MONO % 5.8 % (2.0-8.0); NEUTROPHILS # 4.8 10^3/uL (1.5-8.5); NEUTROPHILS % 59.9 % (36.0-66.0); PLATELET COUNT, AUTOMATED 185 10^3/uL (150-450); RED BLOOD COUNT 5.15 10^6/uL (4.30-6.10); WHITE BLOOD COUNT 8.1 10^3/uL (4.0-10.0)
== END ==
LOC: M LAB 15:17
PROVIDERS: ATTEND Physician Assistant
DX: E29.1 Testicular hypofunction (principal)

== ENCOUNTER → 2024-01-13 | Outpatient (CLI) | payer OTHER ==
[2024-01-13 15:07] LABS: HEMATOCRIT 49.4 % (42.0-52.0); HEMOGLOBIN 17.2 g/dl (13.5-17.5); MEAN CORPUSCULAR HEMOGLOBIN 33.1 pg (27.0-33.0); MEAN CORPUSCULAR HGB CONC 34.8 g/dl (32.0-36.5); PLATELET COUNT, AUTOMATED 185 10^3/uL (150-450); WHITE BLOOD COUNT 9.6 10^3/uL (4.0-10.0)
[2024-01-13 15:38] LABS: PSA SCREENING 0.55 NG/ML (< 4.00)
== END ==
LOC: M LAB 14:47
PROVIDERS: ATTEND Physician Assistant
DX: E29.1 Testicular hypofunction (principal); Z12.5 Encounter for screening for malignant neoplasm of prostate
CPT/HCPCS: 36415; 84403; 85027; G0103

== ENCOUNTER → 2024-08-20 | Outpatient (CLI) | payer OTHER ==
[~2024-08-20] MED LIST changes: +DOXY-441 PO; -DOXY-443 PO
[2024-08-20 16:51] LABS: HEMOGLOBIN 17.3 g/dl (13.5-17.5); MEAN CORPUSCULAR HEMOGLOBIN 32.4 pg (27.0-33.0); MEAN CORPUSCULAR VOLUME 89.9 fl (80.0-96.0); PLATELET COUNT, AUTOMATED 220 10^3/uL (150-450); RED BLOOD COUNT 5.34 10^6/uL (4.30-6.10)
[2024-08-20 17:24] LABS: PSA SCREENING 0.31 NG/ML (< 4.00)
== END ==
LOC: M LAB 16:24
PROVIDERS: ATTEND Physician Assistant
DX: E29.1 Testicular hypofunction (principal); Z12.5 Encounter for screening for malignant neoplasm of prostate
CPT/HCPCS: 36415; 84402; 84403; 85027; G0103